=== PATIENT | male | born 1970 | race Asian ===

== ENCOUNTER 2019-09-04 03:26 | Emergency (ER) | payer OTHER, SELFPAY ==
[2019-09-04 03:37] VITALS: BP 169/109; PULSE 68; RESP 18; TEMP 36.3; O2SAT 98
--- NOTE | 2019-09-04 03:46 | DI.RAD.S_ITS ---
PROCEDURE: XR FINGER RT MIN 2V INDICATIONS: Pain, swelling, Evaluate for foreign body TECHNIQUE: AP hand, 2 views of the right first finger(s) acquired. COMPARISON: None. FINDINGS: Bones: No fractures or dislocations. No suspicious bony lesions. Soft tissues: No suspicious soft tissue calcifications. No radiodense foreign body identified. IMPRESSION: No fracture. No osseous lesion. If symptoms and/or clinical suspicion for pathology persists, further assessment with repeat radiographs (7-10 days) or advanced imaging (e.g. CT, MRI or bone scan) may be helpful. Dictated by: Anna Khan MD, PhD on 09/04/2019 at 8:04 Approved by: Anna Khan MD, PhD on 09/04/2019 at 8:05
--- NOTE | 2019-09-04 03:48 | ED_ITS ---
HPI - Extremity Problem General Chief complaint: Extremity Problem,Nontraumatic Stated complaint: right thumb pain, throbbing inflamed Time Seen by Provider: 09/04/19 03:29 Source: patient Mode of arrival: Ambulatory Limitations: no limitations History of Present Illness HPI Narrative: 48-year-old [id number] male here for evaluation of right thumb pain and swelling. Patient denies any specific injury. He states that he did use a knife grinder yesterday however he was wearing gloves. He does not remember getting poked during this time. He has never had anything like this in the past. He has had gout before in his toes but has never had in his hands. He is on allopurinol on a daily basis. He states that last evening he started noticing pain at the end of his right thumb and also swelling. He did look at it closely with a magnifying glass at home to see if there was a small sliver of metal in it but could not find anything. He also heated up a needle and poked his thumb to see if anything drain which it did not. He also used iodine. He came into emergency department because he states that his thumb is throbbing. Related Data Home Medications Medication Instructions Recorded Confirmed VITAMIN D (Vitamin D3) 1,000 units PO HS #0 06/07/16 [GARLIC COMPLEX] 500 mg PO HS #0 06/07/16 [TURMERIC] 450 mg PO HS #0 06/07/16 allopurinol 300 mg PO HS #0 06/07/16 lisinopril 40 mg PO HS #0 06/07/16 omega 9-qso-djs-fish oil [Fish Oil] 1,000 mg PO HS #0 06/07/16 Previous Rx's Medication Instructions Recorded oxycodone 1 - 2 tab PO Q4HP PRN #25 tab 06/16/16 cephalexin [Keflex] 500 mg PO QID 7 Days #28 cap 09/04/19 Allergies Allergy/AdvReac Type Severity Reaction Status Date / Time ibuprofen [From MOTRIN] Allergy Severe anaphylaxis Unverified 09/04/19 04:07 Review of Systems Constitutional Constitutional: Denies fever(s) Musculoskeletal Comments: Right thumb pain Integumentary/Breasts Comments: Swelling to the end of the right thumb Neurologic Comments: Tingling to the am to the right thumb Hematologic/Lymphatic Hematologic/Lymphatic: Denies easy bleeding and Denies easy bruising Allergic/Immunologic Allergic/Immunologic: Denies urticaria Patient History Medical History Cholelithiasis and cholecystitis without obstruction (Inactive) Gout (Acute) Hepatitis B (Acute) Social History Smoking Status: Never smoker Smoking Status: Never smoker Substance Use Type: does not use Exam Initial Vital Signs Initial Vital Signs: Vital Signs Temperature 97.4 F L 09/04/19 03:37 Pulse Rate 68 09/04/19 03:37 Respiratory Rate 18 09/04/19 03:37 Blood Pressure 169/109 H 09/04/19 03:37 Pulse Oximetry 98 09/04/19 03:37 Const General: cooperative, comfortable and well developed Limitations: mental status not altered Cardio Pulses: radial pulses present on the right Skin Lesions: no lesions Rashes: no rashes Neuro Sensory Exam: no sensory deficits noted Extrem Other: Right MCP joint of the thumb unremarkable. Right thumb IP joint unremarkable. Patient does have tenderness and slight redness to the pad of the right thumb. Course Orders Ordered: ED Orders 09/04/19 03:46 XR finger RT min 2V Stat Discontinued Medications Acetaminophen (Tylenol) 650 mg PO NOW ONE Stop: 09/04/19 04:10 Vital Signs Vital signs: Vital Signs - 8 hr 09/04/19 03:37 Temperature 97.4 F L Pulse Rate 68 Respiratory Rate 18 Blood Pressure 169/109 H Pulse Oximetry 98 MDM - Extremity (Nontraumatic) Imaging Data Extremity x-ray #1: Attestation: I personally reviewed and interpreted this imaging study as follows: My Impression: No fractures, no dislocations, no foreign bodies MDM Narrative Medical decision making narrative: X-ray shows no foreign body. No fractures. His exam is not consistent with gout. I evaluated the patient's thumb with a magnifying glass and could not find any foreign bodies. He is very slightly more swollen on the right pad compared to the left side. His physical exam is not consistent with a Felon. Patient cannot take ibuprofen secondary to an anaphylactic reaction. He does have hepatitis B and I did inform him that he could take Tylenol 1 very small quantities for very short period of time. I am not 100% convinced that his symptoms are not infection however given his presentation plan will be is to sent him home with a prescription for antibiotics. He was instructed to hold on this prescription for the next 12-24 hours and if his symptoms worsen he should start taking the antibiotics. If his symptoms still continue to worsen despite this he needs to return to the emergency department. If his symptoms do not worsen however do not improve he was instructed to continue to watch his thumb with the next couple days and contact his primary provider. We did discuss the use of ice and keeping it elevated. He expressed understanding and agreement. Discharge Plan Departure Patient Disposition: Home Clinical Impression: Pain of right thumb Instructions: How To Perform RICE (Rest, Ice, Compress, Elevate) Activity Restrictions/Additional Instructions: The x-ray today showed no foreign body. Like we discussed hold on the prescription for antibiotics for the next 12-24 hours. If your symptoms start to worsen then fill the prescription and start taking it as directed. If the sy mptoms are still worsening despite the antibiotics please return to the emergency department for further evaluation. If your symptoms are not worsening however not improving give it more than 24 hours to see if the symptoms improve. If not start taking the antibiotics as directed. Contact your primary provider for follow-up. Prescriptions: New cephalexin [Keflex] 500 mg capsule 500 mg PO QID 7 Days Qty: 28 RF: 0 No Action allopurinol 300 MG tablet 300 mg PO HS Qty: 0 RF: 0 lisinopril 40 MG tablet 40 mg PO HS Qty: 0 RF: 0 VITAMIN D (Vitamin D3) 1,000 units PO HS Qty: 0 RF: 0 [GARLIC COMPLEX] 500 mg PO HS Qty: 0 RF: 0 [TURMERIC] 450 mg PO HS Qty: 0 RF: 0 omega 3-yfl-oai-fish oil [Fish Oil] 1,000 MG capsule 1,000 mg PO HS Qty: 0 RF: 0 oxycodone 5 MG tablet 1 - 2 tab PO Q4HP PRNQty: 25 RF: 0 Referrals: Ronaldo Johnson [Primary Care Provider] -
[2019-09-04] MEDS: ACETAMINOPHEN 325 MG TABLET 650 MG PO (04:14)
== END 2019-09-04 04:17 | disposition home or self-care (01) ==
PROVIDERS: Emergency Provider Emergency Medicine; Family Provider Internal Medicine; PCP Internal Medicine
DX: M79.644 Pain in right finger(s) (principal)
CPT/HCPCS: 73140; 99283

== ENCOUNTER → 2023-01-27 07:44 | Outpatient (CLI) | payer OTHER, SELFPAY ==
--- NOTE | 2023-01-27 | DI.US.S_ITS ---
PROCEDURE: US ABDOMEN LIMITED INDICATIONS: CHRONIC VIRAL HEPATITIS B W/O DELTA AGENT TECHNIQUE: Real-time scanning was performed of the abdominal and retroperitoneal organs, with image documentation. COMPARISON: None. FINDINGS: Liver: Liver echotexture is moderately echogenic and difficult to visualize. No intrahepatic lesions identified. Main portal vein is patent. Gallbladder: Status post cholecystectomy Biliary ducts: Intrahepatic bile ducts are not well visualized. Difficult to assess extrahepatic biliary ducts. Pancreas: Visualized portions of the pancreas are sonographically normal. IVC: Intrahepatic inferior vena cava is patent. Miscellaneous: No free abdominal fluid. IMPRESSION: Moderately echogenic hepatic echotexture without focal intrahepatic lesions. Findings are compatible with hepatic steatosis versus sequela of other chronic hepatocellular disease. Status post cholecystectomy. Dictated by: Enoc Jorge M.D. on 01/27/2023 at 9:08 Approved by: Enoc Jorge M.D. on 01/27/2023 at 9:11
== END ==
PROVIDERS: Family Provider Internal Medicine; PCP Family Medicine; Referring Provider Nurse Practitioner Adult Health; Visit Provider Nurse Practitioner Adult Health
DX: B18.1 Chronic viral hepatitis B without delta-agent (principal); Z90.49 Acquired absence of other specified parts of digestive tract
CPT/HCPCS: 76705

== ENCOUNTER → 2023-06-26 08:08 | Outpatient (CLI) | payer OTHER, SELFPAY ==
--- NOTE | 2023-06-26 08:09 | DI.US.S_ITS ---
PROCEDURE: US ABDOMEN LIMITED INDICATIONS: Chronic viral hepatitis B without delta-agent TECHNIQUE: Real-time scanning was performed of the abdominal and retroperitoneal organs, with image documentation. COMPARISON: [facility], US, US ABDOMEN LIMITED, 01/27/2023, 8:33. FINDINGS: Liver: Increased liver echogenicity with posterior attenuation, most consistent with moderate to severe steatosis. No definite solid mass, although evaluation is suboptimal. Gallbladder: Absent. Biliary ducts: Intrahepatic bile ducts are non-dilated. Extrahepatic bile duct caliber measures 7 mm. Normal is 6-7 mm or less in diameter, or 10 mm or less post-cholecystectomy. Pancreas: Not visualized due to overlying bowel gas. Miscellaneous: No free abdominal fluid. Right Kidney anechoic cyst. No hydronephrosis. IVC patent. IMPRESSION: Moderate to severe hepatic steatosis. Evaluation for hepatocellular carcinoma is suboptimal due to decreased penetration of the liver. Screening for liver lesions should be considered with MRI in the future. Dictated by: Jung Coy M.D. on 06/26/2023 at 9:48 Approved by: Jung Coy M.D. on 06/26/2023 at 9:49
== END ==
LOC: US 08:09
PROVIDERS: Family Provider Internal Medicine; PCP Family Medicine; Referring Provider Nurse Practitioner Adult Health; Visit Provider Nurse Practitioner Adult Health
DX: B18.1 Chronic viral hepatitis B without delta-agent (principal); K76.0 Fatty (change of) liver, not elsewhere classified
CPT/HCPCS: 76705

== ENCOUNTER → 2024-01-01 10:55 | Outpatient (CLI) | payer OTHER, SELFPAY ==
--- NOTE | 2024-01-01 10:57 | DI.MRI.S_ITS ---
PROCEDURE: MR ABDOMEN WO/W CON INDICATIONS: CHRONIC HEP B TECHNIQUE: Coronal HASTE, axial 2D FLASH in- and [id number]; axial breath-hold T2 FSE. Dynamic axial VIBE during the administration of contrast; post-contrast coronal VIBE or 2D FLASH with fat saturation from the hepatic dome to the iliac crests. Optional diffusion weighted imaging and ADC may be performed. COMPARISON: [facility], CT, CT ABDOMEN PELVIS WITH CONTRAST, 03/13/2021, 1:54. FINDINGS: Image quality: Diagnostic Lower chest: No basal effusions. Liver: Severe hepatic steatosis. 9 mm peripheral hypervascular region in segment 6 (8/61), possibly perfusion anomaly. No lesion with washout identified. No suspicious focal T2 signal or diffusion restriction. Gallbladder and biliary system: Nondilated biliary system. Gallbladder is absent Pancreas: No ductal dilation Spleen: Nonenlarged Adrenals: No discrete nodules Kidneys: Horseshoe kidney configuration. Right renal cyst. No solid renal mass or hydronephrosis Vessels and lymph nodes: The main portal vein appears patent. No abdominal aortic aneurysm. No pathologic lymph nodes by size criteria Bowel and peritoneum: No evidence of small bowel obstruction. No pathologic ascites. Body wall: Unremarkable Bones: Unremarkable IMPRESSION: Severe hepatic steatosis. No LR 4 or LR 5 lesion suspicious for HCC. Possible perfusion anomaly is seen in the periphery of segment 6 (8/61) measuring 9 mm (LR 3). Continued HCC surveillance is suggested. Other findings above Dictated by: Reji Herring M.D. on 01/02/2024 at 13:16 Approved by: Reji Herring M.D. on 01/02/2024 at 13:21
== END ==
PROVIDERS: Family Provider Internal Medicine; PCP Family Medicine; Referring Provider Nurse Practitioner Adult Health; Visit Provider Nurse Practitioner Adult Health
DX: B18.1 Chronic viral hepatitis B without delta-agent (principal); N28.1 Cyst of kidney, acquired; K76.0 Fatty (change of) liver, not elsewhere classified; Z90.49 Acquired absence of other specified parts of digestive tract
CPT/HCPCS: 74183; A9579

== ENCOUNTER → 2024-07-03 08:50 | Outpatient (CLI) | payer OTHER, SELFPAY ==
--- NOTE | 2024-07-03 | DI.MRI.S_ITS ---
PROCEDURE: MR ABDOMEN LIVER PROTOCOL INDICATIONS: chronic hepatitis TECHNIQUE: Coronal HASTE, axial 2D FLASH in- and [id number]; axial breath-hold T2 FSE. Dynamic axial VIBE during the administration of contrast; post-contrast coronal VIBE or 2D FLASH with fat saturation from the hepatic dome to the iliac crests. Optional diffusion weighted imaging and ADC may be performed. COMPARISON: [facility], MR, MR ABDOMEN WO/W CON, 01/01/2024, 11:03. FINDINGS: Image quality: Diagnostic. Lung bases: Unremarkable. Liver: Marked hepatic steatosis. Edge blunting present. Smooth contour. Resolved perfusion anomaly in segment 6 of the liver. No observations of probably or definitely HCC. Gallbladder: Absent. Biliary ducts: No biliary dilation. Pancreas: No ductal dilation. Punctate T2 hyperintense lesion in the tail, unchanged from prior and likely a small side branch IPMN. Spleen: Size is within normal limits. Adrenal Glands: No adrenal nodules. Kidneys and Ureters: No hydronephrosis. No solid mass. No complex renal cystic lesion which requires follow up. Horseshoe kidney. Stomach and Bowel: Normal colonic caliber, without significant wall thickening. Peritoneum: No abnormal intraperitoneal fluid. No free air. Ventral Wall: No hernia. Abdominal Nodes: No retroperitoneal or mesenteric adenopathy by size criteria. Vessels: Aorta and inferior vena cava are normal in size. Bones: No aggressive osseous abnormality. IMPRESSION: Non cirrhotic liver morphology. No observations of probably or definitely HCC. Resolved perfusion anomaly of segment 6 of the liver. Horseshoe kidney without solid mass. Dictated by: Jung Coy M.D. on 07/03/2024 at 11:04 Approved by: Jung Coy M.D. on 07/03/2024 at 11:26
== END ==
PROVIDERS: Family Provider Internal Medicine; PCP Family Medicine; Referring Provider Nurse Practitioner Adult Health; Visit Provider Nurse Practitioner Adult Health
DX: B18.1 Chronic viral hepatitis B without delta-agent (principal); Q63.1 Lobulated, fused and horseshoe kidney; K76.0 Fatty (change of) liver, not elsewhere classified; Z90.49 Acquired absence of other specified parts of digestive tract
CPT/HCPCS: 74183; A9579

== ENCOUNTER → 2024-12-30 07:39 | Outpatient (CLI) | payer OTHER, SELFPAY ==
--- NOTE | 2024-12-30 | DI.US.S_ITS ---
PROCEDURE: US ABDOMEN LIMITED INDICATIONS: chronic hepatitis b TECHNIQUE: Real-time scanning was performed of the abdominal and retroperitoneal organs, with image documentation. COMPARISON: [facility], , US ABDOMEN LIMITED, 06/26/2023, 8:36. FINDINGS: Liver: Increased liver echogenicity with posterior attenuation, most consistent with moderate to severe steatosis. Gallbladder: Absent. Biliary ducts: Not well visualized due to liver density. Pancreas: Visualized portions of the pancreas are sonographically normal. Miscellaneous: No free abdominal fluid. IMPRESSION: Severe hepatic steatosis. HCC screening is suboptimal due to the liver density. Consider future screening with cross-sectional imaging. Dictated by: Jung Coy M.D. on 12/30/2024 at 9:38 Approved by: Jung Coy M.D. on 12/30/2024 at 9:39
== END ==
PROVIDERS: Family Provider Internal Medicine; PCP Family Medicine; Referring Provider Family Medicine; Visit Provider Nurse Practitioner Adult Health
DX: B18.1 Chronic viral hepatitis B without delta-agent (principal); Z90.49 Acquired absence of other specified parts of digestive tract
CPT/HCPCS: 76705